=== PATIENT | male | born 1985 | race Caucasian/White ===

== ENCOUNTER 2023-10-20 12:37 | Inpatient (IN) | payer OTHER ==
[2023-10-20 14:23] VITALS: BMI 42.2
[2023-10-20] MEDS ORDERED: hydrOXYzine PAMOATE 25 MG CAPSULE (FP) PO PRN (15:21)
[2023-10-20] MEDS ORDERED: MAG HYDROX/AL HYDROX/SIMETH 30 ML UNIT-DOSE CUP PO PRN (15:21)
[2023-10-20] MEDS ORDERED: P-EPHED 60MG/TRIPROLIDI 2.5MG TABLET PO PRN (15:21)
[2023-10-20] MEDS ORDERED: BENZOCAINE/MENTHOL (CHLORASEPTIC ) LOZENGE MM PRN (15:21)
[2023-10-20] MEDS ORDERED: ACETAMINOPHEN 325 MG TABLET (FP) PO PRN (15:21)
[2023-10-20] MEDS ORDERED: IBUPROFEN 600 MG TABLET (FP) PO PRN (15:21)
[2023-10-20] MEDS ORDERED: NICOTINE POLACRILEX 2 MG LOZENGE BC PRN (15:21)
[2023-10-20] MEDS ORDERED: IBUPROFEN 400 MG TABLET (FP) PO PRN (15:21)
[2023-10-20] MEDS ORDERED: POLYETHYLENE GLYCOL (HEALTHYLAX) 3350 17 GM PACKET PO PRN (15:21)
[2023-10-20] MEDS ORDERED: guaiFENesin 600 MG TABLET.ER (FP) PO PRN (15:21)
[2023-10-20] MEDS ORDERED: NICOTINE POLACRILEX 2 MG GUM BUC PRN (15:21)
[2023-10-20] MEDS ORDERED: BENZONATATE 200 MG CAPSULE PO PRN (15:21)
[2023-10-20] MEDS ORDERED: MAGNESIUM HYDROX 2400MG/30ML ORAL SUSPENSION 30 ML CUP PO PRN (15:21)
[2023-10-20] MEDS ORDERED: LOPERAMIDE HCL 2 MG CAPSULE PO PRN (15:21)
[2023-10-20] MEDS: TUBERCULIN PPD 5 TU/0.1ML SYRINGE (IN PATIENT USE ONLY) ID ONE (18:40)
[2023-10-20] MEDS: THIAMINE 100 MG TABLET PO SCH (22:28)
[2023-10-20] MEDS: FLUTICASONE PROP 0.05% 16 GM NASAL SPRAY NS PRN (22:28)
[2023-10-20] MEDS: MELATONIN 5 MG TABLETS PO SCH (22:28)
[2023-10-21] MEDS: PRENATAL VITAMINS W/ FOLIC ACID TABLET (FP) PO SCH (10:52)
[2023-10-21 11:16] LABS: POTASSIUM 4.4 mmol/L (3.5-5.1)
[2023-10-21 11:19] LABS: HEMATOCRIT 39.5 % (35.4-49); MCH 29.3 pg (25.7-33.7); MCHC 32.8 g/dl (32.0-35.9); MEAN CELL VOLUME 89.5 fl (80-96); MEAN PLT VOLUME 8.7 fl (7.5-11.1); PLATELET COUNT 335 10^3/uL (134-434); RBC 4.42 M/mm3 (4.00-5.60)
[2023-10-21 11:23] LABS: ALBUMIN 3.5 g/dl (3.4-5.0); BLOOD UREA NITROGEN 20.4 mg/dL (7-18); CALCIUM 8.9 mg/dL (8.5-10.1)
[2023-10-21 11:25] LABS: BILIRUBIN,TOTAL 0.6 mg/dL (0.2-1)
[2023-10-21 11:48] LABS: SYPHILIS W/ RPR CONF NON-REACTIVE (NONREACTIVE)
[2023-10-21 15:55] LABS: PH,URINE 5.5 (5.0-8.0); URINE APPEARANCE TURBID; URINE BILIRUBIN NEGATIVE (NEGATIVE); URINE COLOR YELLOW; URINE GLUCOSE (UA) NEGATIVE (NEGATIVE); URINE KETONE NEGATIVE (NEGATIVE); URINE LEUK ESTERASE NEGATIVE (NEGATIVE); URINE NITRITE NEGATIVE (NEGATIVE); URINE PROTEIN NEGATIVE (NEGATIVE); URINE UROBILINOGEN 0.2 mg/dL (0.2-1.0)
[2023-10-21] MEDS: DULoxetine HCL 60 MG CAPSULE.DR PO SCH (21:54)
[2023-10-22 06:45] VITALS: RESP 18
[2023-10-22] MEDS ORDERED: DULoxetine HCL 30 MG CAPSULE.DR PO ONE (10:42)
[2023-10-22] MEDS: ARIPiprazole 10 MG TABLET PO SCH (10:44)
[2023-10-23] MEDS ORDERED: DULoxetine HCL 30 MG CAPSULE.DR PO ONE (10:33)
[2023-10-23 13:27] VITALS: BP 136/72; PULSE 90; TEMP 96.9
== END 2023-10-23 15:58 | disposition left against medical advice (07) | DRG 770 ==
LOC: YASAS 12:37 → Y3NR 17:55 → Y3W 10-23 13:10
PROVIDERS: ADMIT Allergy & Immunology; ATTEND Psychiatry & Neurology Pain Medicine
PROC: HZ42ZZZ Group Counseling for Substance Abuse Treatment, Cognitive-Behavioral (ICD-10-PCS; principal; 2023-10-20)
DX: F14.20 Cocaine dependence, uncomplicated (principal); F10.20 Alcohol dependence, uncomplicated; F12.20 Cannabis dependence, uncomplicated; F17.290 Nicotine dependence, other tobacco product, uncomplicated; F41.9 Anxiety disorder, unspecified; F32.A Depression, unspecified; Z56.0 Unemployment, unspecified; Z59.00 Homelessness unspecified; Z88.7 Allergy status to serum and vaccine
CPT/HCPCS: 36415; 80053; 80305; 80307; 81003; 85027; 86780; 86803; 87811; 93005; 93010